=== PATIENT | female | born 1965 | race Caucasian/White ===

== ENCOUNTER 2023-09-23 10:23 | Day surgery (SDC) | payer OTHER ==
[2023-09-23] VITALS (7 sets, daily range): BP systolic 140–175; BP diastolic 67–83; PULSE 64–78; TEMP 97.4–97.9
[~2023-09-23] VITALS: Ht 165.1 cm; Wt 73.7 kg
[~2023-09-23 10:23] MED LIST: HYDROmorphone 2 MG/1 ML VIAL IV PRN; Indocyanine Green 12.5 MG in Water For Injection,Sterile 2.5 ML IV SCH; LR 1,000 ML IV SCH; Meclizine 25 MG TAB PO SCH; Metoclopramide 10 MG TAB PO SCH; Ondansetron 4 MG/2 ML VIAL IV PRN; Promethazine 25 MG/ML 1 ML VIAL IV PRN; droPERidol 2.5 MG/ML 2 ML VIAL IV PRN; fentaNYL 50 MCG/ML 2 ML VIAL IV PRN; hydrALAZINE 20 MG/ML 1 ML VIAL IV PRN
[2023-09-23] MEDS ORDERED: DESYREL 50MG50 MG PO (11:06)
[2023-09-23] MEDS ORDERED: SINGULAIR 110 MG/TAB PO (11:06)
[2023-09-23] MEDS ORDERED: MULTI VITAMINS1 TAB PO (11:07)
[2023-09-23] MEDS ORDERED: ASPIRIN E.C. 8181 MG PO (11:07)
[2023-09-23] MEDS ORDERED: STOOL SOFTENER100 M2 PO (11:08)
[2023-09-23] MEDS ORDERED: CALCIUM-MAGNES1 EAC1 PO (11:08)
[2023-09-23] MEDS ORDERED: VITAMINC1000TA (11:09)
[2023-09-23] MEDS ORDERED: PROBIOTIC BLEN1 EACH PO (11:10)
[2023-09-23] MEDS ORDERED: EYE MULTIVITAM1 EAC1 PO (11:12)
[2023-09-23] MEDS ORDERED: Ondansetron 4 MG/2 ML VIAL ONE (11:28)
[2023-09-23] MEDS ORDERED: Ketorolac 30 MG/ML VIAL ONE (11:28)
[2023-09-23] MEDS ORDERED: NS 10 ML IV ONE (11:28)
[2023-09-23] MEDS ORDERED: Lidocaine PF 2% (20 MG/ML) 5 ML VIAL ONE (11:28)
[2023-09-23] MEDS ORDERED: dexAMETHasone 10 MG/ML VIAL ONE (11:28)
[2023-09-23] MEDS ORDERED: fentaNYL 50 MCG/ML 2 ML VIAL ONE (11:29)
[2023-09-23] MEDS ORDERED: Rocuronium 50 MG/5 ML Multi-Dose VIAL ONE (11:29)
[2023-09-23] MEDS ORDERED: Acetaminophen 325 MG TAB PO PRN (12:30)
[2023-09-23] MEDS ORDERED: Ibuprofen 600 MG TAB PO PRN (12:30)
[2023-09-23] MEDS ORDERED: Ondansetron 4 MG/2 ML VIAL IV PRN (12:30)
[2023-09-23] MEDS ORDERED: NORCO 325 MG-51 TAB PO (12:32)
[2023-09-23] MEDS ORDERED: Labetalol 100 MG/20 ML Multi-Dose VIAL ONE (12:42)
--- NOTE | 2023-09-23 13:35 | NUR ---
1040 Pt ambulatory to bay 2 with a steady gait, breathing even and unlabored. Pt is alert and oriented, accompanied today by her . Consents reviewed and signed by pt. IV established. LR infusing via gravity at KVO. Call light in reach. Warm blanket provided.
--- NOTE | 2023-09-23 16:10 | NUR ---
1400 RETURNS TO ROOM 2 PER CART. AWAKE, ALERT, RESP UNLABORED. HOB ELEVATED 40 DEGREES. ABD SOFT. BANDAID X 4 SITES CLEAN DRY AND INTACT. REPORTS PRESENCE OF "MOSTLY GAS PAIN" RIGHT SHOULDER/SCAPULA AREA. 6-03/10. DENIES NEED FOR PAIN MED. REPOSITIONS SELF ON CART. VITAL SIGNS OBTAINED. CALL LIGHT AT SIDE. IN ROOM. 1415 HB ELEVATED 60 DEGREES 1430 REPORTS CONTINUED "GAS PAIN", ABD SOFT. BANDAIDS DRY/INTACT 1445 TOLERATES PO WATER WITHOUT NAUSEA 1500 DOZING 1515 AWAKE, ALERT. REPORTS INCREASED COMFORT. TOLERATES PO JUICE AND MUFFIN WITHOUT NAUSEA 1531 PO PAIN PILL (NORCO) GIVEN AT THIS TIME PER PATIENT REQUEST PRIOR TO DISCHARGE HOME. REPORTS DECREASED GAS DISCOMFORT. RATES PAIN 12/09. 1545 DISCHARGE INSTRUCTIONS REVIEWED. PATIENT VERBALZIES UNDERSTANDING. COPY PROVIDED IN DISCHARGE FOLDER 1600 SITS ON EDGE OF CART, DRESSES SELF, THEN AMBULATES TO BATHROOM WITH STANDBY ASSIST. ADMITS TO VOIDING WITHOUT DIFFICULTY.
== END 2023-09-23 16:10 | disposition home or self-care (01) ==
LOC: SDCO 10:23
DX: K81.0 Acute cholecystitis (principal); K82.8 Other specified diseases of gallbladder
CPT/HCPCS: J0690; J1100; J1885; J1920; J2405; J2704; J3010; J7120